=== PATIENT | male | born 2000 | race Caucasian/White ===

== ENCOUNTER 2022-06-18 20:17 | Emergency (ER) | payer OTHER ==
[~2022-06-18] VITALS: Ht 177.8 cm; Wt 79.4 kg
[2022-06-18 20:48] VITALS: BP 141/75
--- NOTE | 2022-06-19 01:55 | NUR ---
SILVIA PHILLIPS ASSESSING PATIENT
[2022-06-19] MEDS ORDERED: IBUP-2213 PO (02:21)
[2022-06-19 02:37] VITALS: BP 141/75
== END 2022-06-19 02:37 | disposition home or self-care (01) ==
LOC: MED 20:17
DX: S30.0XXA Contusion of lower back and pelvis, initial encounter (principal); W18.30XA Fall on same level, unspecified, initial encounter; Y93.89 Activity, other specified; Y92.89 Other specified places as the place of occurrence of the external cause; Y99.8 Other external cause status
CPT/HCPCS: 81002; 99282

== ENCOUNTER 2022-11-12 19:19 | Emergency (ER) | payer OTHER ==
[~2022-11-12] VITALS: Ht 175.3 cm; Wt 83.0 kg
[~2022-11-12 19:19] MED LIST: IBUP-2213 PO
[2022-11-12 20:25] VITALS: BP 140/84
[2022-11-12] MEDS ORDERED: IBUPROFEN 800 MG TAB PO ONE (22:10)
[2022-11-12 23:26] LABS: BASOPHILS % (AUTO) 0.2 % (0.0-2.0); EOSINOPHILS % (AUTO) 0.1 % (0.0-4.0); HEMATOCRIT 49.3 % (36-52); HEMOGLOBIN 17.1 g/dL (12.0-18.0); LYMPHOCYTES # (AUTO) 0.5 K/uL (2.0-11.5); LYMPHOCYTES % (AUTO) 4.2 % (20.5-51.1); MEAN CORPUSCULAR HEMOGLOBIN 31 pg (27-31); MEAN CORPUSCULAR HGB CONC 35 g/dL (33-37); MEAN CORPUSCULAR VOLUME 89.9 fL (80-94); MONOCYTES # (AUTO) 1.5 K/uL (0.8-1.0); MONOCYTES % (AUTO) 14.1 % (1.7-9.3); NEUTROPHILS # (AUTO) 8.8 K/uL (1.8-7.7); NEUTROPHILS % (AUTO) 81.4 % (42.2-75.2); PLATELET COUNT (AUTO) 259 K/uL (140-450); RED BLOOD CELL COUNT(AUTO) 5.49 MIL/uL (4.20-6.10); RED CELL DISTRIBUTION WIDTH 12.9 % (11.6-13.7); WHITE BLOOD COUNT (AUTO) 10.8 K/uL (4.5-11.0)
[2022-11-12 23:48] LABS: ANION GAP 15.7 (8-16); CARBON DIOXIDE 25.1 mmol/L (21-32); CREATININE 0.9 mg/dL (0.6-1.3); POTASSIUM 3.8 mmol/L (3.5-5.1); TOTAL BILIRUBIN 0.5 mg/dL (0.0-1.0)
--- NOTE | 2022-11-13 00:50 | NUR ---
flu and covid swabs collected.
[2022-11-13 00:54] VITALS: BP 146/95
--- NOTE | 2022-11-13 00:54 | NUR ---
Patient discharged with v/s stable. Written and verbal after care instructions given and explained. Patient verbalized understanding. Ambulatory with steady gait. All questions addressed prior to discharge. Advised to follow up with PMD.
[2022-11-13] MEDS ORDERED: NIRM1TAB PO (13:48)
== END 2022-11-13 00:54 | disposition home or self-care (01) ==
LOC: MED 19:19
DX: U07.1 COVID-19 (principal); J45.909 Unspecified asthma, uncomplicated; Z79.1 Long term (current) use of non-steroidal anti-inflammatories (NSAID)
CPT/HCPCS: 36415; 80053; 85025; 99283